=== PATIENT | female | born 1995 | race Caucasian/White ===

== ENCOUNTER 2022-08-29 08:25 | Day surgery (SDC) | payer BC ==
[~2022-08-29 08:25] MED LIST: SERTRA PO; [UNRECOGNIZED DRUG - OTHER] PO
[2022-08-29] MEDS ORDERED: IBU600 MG PO (15:20)
[2022-08-29] MEDS ORDERED: MORGIDOX100 MG PO (15:20)
== END 2022-08-29 20:30 | disposition home or self-care (01) ==
LOC: CIR.AMB 08:25
PROVIDERS: ATTEND Obstetrics & Gynecology
DX: O02.1 Missed abortion (principal); O72.2 Delayed and secondary postpartum hemorrhage; Z20.822 Contact with and (suspected) exposure to COVID-19